=== PATIENT | female | born 1970 | race Two or more races ===

== ENCOUNTER 2019-12-21 14:01 | Outpatient (CLI) | payer OTHER | END 2019-12-21 14:16 | disposition home or self-care (01) | LOC: NUCLEAR 14:01 | PROVIDERS: ATTEND Internal Medicine Sports Medicine | DX: M81.0 Age-related osteoporosis without current pathological fracture (principal); M85.89 Other specified disorders of bone density and structure, multiple sites ==

== ENCOUNTER 2021-02-26 09:07 | Outpatient (CLI) | payer OTHER | END 2021-02-26 09:19 | disposition home or self-care (01) | LOC: MAMO-SONO 09:07 | PROVIDERS: ATTEND Internal Medicine Sports Medicine | DX: R92.0 Mammographic microcalcification found on diagnostic imaging of breast (principal); N64.59 Other signs and symptoms in breast; Z12.31 Encounter for screening mammogram for malignant neoplasm of breast ==

== ENCOUNTER 2022-05-01 07:55 | Outpatient (CLI) | payer OTHER | END 2022-05-01 08:14 | disposition home or self-care (01) | LOC: MAMO-SONO 07:55 | PROVIDERS: ATTEND Internal Medicine Sports Medicine | DX: Z12.31 Encounter for screening mammogram for malignant neoplasm of breast (principal) ==

== ENCOUNTER 2023-04-09 08:57 | Outpatient (CLI) | payer OTHER | END 2023-04-09 08:59 | disposition home or self-care (01) | LOC: NUCLEAR 08:57 | PROVIDERS: ATTEND Internal Medicine Sports Medicine | DX: M81.0 Age-related osteoporosis without current pathological fracture (principal) ==

== ENCOUNTER 2023-05-24 13:54 | Outpatient (CLI) | payer OTHER | END 2023-05-24 14:40 | disposition home or self-care (01) | LOC: MAMO-SONO 13:54 | PROVIDERS: ATTEND Internal Medicine Sports Medicine | DX: Z12.39 Encounter for other screening for malignant neoplasm of breast (principal) ==

== ENCOUNTER 2024-08-10 14:42 | Outpatient (CLI) | payer OTHER | END 2024-08-10 14:56 | disposition home or self-care (01) | LOC: MAMO-SONO 14:42 | PROVIDERS: ATTEND Internal Medicine Sports Medicine | DX: Z12.39 Encounter for other screening for malignant neoplasm of breast (principal); Z12.31 Encounter for screening mammogram for malignant neoplasm of breast ==